=== PATIENT | female | born 1935 | race African-American/Black ===

== ENCOUNTER → 2017-03-09 | Outpatient (CLI) | payer MEDICARE, MEDICAID ==
[~2017-03-09] MED LIST: METFORMIN; tramadol
== END | disposition home or self-care (01) ==
LOC: MRI 07:58
PROVIDERS: ATTEND Internal Medicine Geriatric Medicine
DX: G31.89 Other specified degenerative diseases of nervous system (principal); R41.82 Altered mental status, unspecified; R90.82 White matter disease, unspecified; R29.6 Repeated falls
CPT/HCPCS: 70551